=== PATIENT | female | born 1990 | race Caucasian/White ===

== ENCOUNTER 2023-10-22 23:50 | Inpatient (IN) | payer OTHER ==
[2023-10-23] MEDS: ELECTROLYTE-148 SOLN 1,000 ML IV SCH (00:15)
[2023-10-23 01:06] LABS: BASO % 0.6 % (0-2.0); EOS % 0.6 % (0-4.5); HEMATOCRIT 36.5 % (32.4-45.2); HEMOGLOBIN 12.4 GM/dL (10.7-15.3); LYMPH % 19.9 % (8-40); MCH 29.5 pg (25.7-33.7); MCHC 34.1 g/dl (32.0-36.0); MEAN CELL VOLUME 86.5 fl (80-96); MEAN PLT VOLUME 8.8 fl (7.5-11.1); MONO % 6.4 % (3.8-10.2); NEUT % 72.5 % (42.8-82.8); PLATELET COUNT 276 10^3/uL (134-434); RBC 4.22 M/mm3 (3.60-5.2); RDW 13.6 % (11.6-15.6); WHITE BLOOD COUNT 13.2 K/mm3 (4.0-10.0)
[2023-10-23 01:13] LABS: INR 0.89 (0.83-1.09); PROTHROMBIN TIME (PATIENT) 10.3 SEC (9.7-13.0)
[2023-10-23 01:16] LABS: ACTIVATED PTT 25.5 SECONDS (25.2-36.5)
[2023-10-23 01:26] VITALS: BMI 25.0
[2023-10-23 01:36] LABS: POTASSIUM 3.6 mmol/L (3.5-5.1)
[2023-10-23 01:38] LABS: BLOOD UREA NITROGEN 6.1 mg/dL (7-18)
[2023-10-23] MEDS ORDERED: FENTANYL/BUPIVACAINE/NS/PF - PCEA - 50 ML DISP.SYRIN EP ONE ×2 (01:40→04:47)
[2023-10-23] MEDS ORDERED: NALOXONE HCL 0.4 MG/ML VIAL IVPUSH PRN (01:40)
[2023-10-23 01:41] LABS: CREATININE 0.6 mg/dL (0.55-1.3)
[2023-10-23] MEDS ORDERED: FENTANYL CITRATE/PF 50 MCG/ML VIAL ONE (01:48)
[2023-10-23] MEDS ORDERED: BUPIVACAINE HCL/PF 0.25% (2.5MG/ML) 10 ML VIAL ONE (01:48)
[2023-10-23] MEDS: FENTANYL/BUPIVACAINE/NS/PF - PCEA - 50 ML DISP.SYRIN EP SCH (01:50)
[2023-10-23] MEDS ORDERED: OXYTOCIN 30 UNITS in 0.9% NS 30 UNIT/500 ML INFUS.BAG IVPB ONE (03:12)
[2023-10-23] MEDS: OXYTOCIN 30 UNITS in 0.9% NS 30 UNIT/500 ML INFUS.BAG IVPB SCH (03:15)
[2023-10-23 03:21] LABS: HIV INTERPRETATION NEGATIVE (NEGATIVE)
[2023-10-23] MEDS ORDERED: OXYTOCIN 20 UNITS in 0.9% NS 20 UNIT/1,000 ML INFUS.BAG IV ONE (06:46)
[2023-10-23] MEDS ORDERED: oxyCODONE HCL 5 MG TABLET PO PRN (07:14)
[2023-10-23] MEDS ORDERED: BISACODYL 10 MG SUPP.RECT RC PRN (07:14)
[2023-10-23] MEDS ORDERED: METHYLERGONOVINE MALEATE 0.2 MG/1 ML AMP IM PRN (07:14)
[2023-10-23] MEDS ORDERED: BENZOCAINE 28 GM HEMORRHOIDAL OINTMENT TP PRN (07:14)
[2023-10-23] MEDS ORDERED: MISOPROSTOL 200 MCG TABLET ONE (07:59)
[2023-10-23] MEDS: OXYTOCIN 20 UNITS in 0.9% NS 20 UNIT/1,000 ML INFUS.BAG IV SCH (08:02)
[2023-10-23] MEDS ORDERED: MISOPROSTOL 100 MCG TABLET ONE (08:12)
[2023-10-23] MEDS: PROMETHAZINE HCL 25 MG/1 ML VIAL IVPB ONE (08:31)
[2023-10-23] MEDS: BUTORPHANOL TARTRATE 1 MG/ML VIAL IVPB ONE (08:31)
[2023-10-23] MEDS: PRENATAL VITAMINS W/ FOLIC ACID TABLET (FP) PO SCH (10:42)
[2023-10-23] MEDS: ACETAMINOPHEN 325 MG TABLET (FP) PO PRN (11:50)
[2023-10-24 06:07] VITALS: RESP 18
[2023-10-24 06:27] LABS: BASO % 0.6 % (0-2.0); EOS % 0.4 % (0-4.5); HEMATOCRIT 32.9 % (32.4-45.2); LYMPH % 16.5 % (8-40); MCH 29.3 pg (25.7-33.7); MCHC 33.3 g/dl (32.0-36.0); MEAN PLT VOLUME 8.7 fl (7.5-11.1); MONO % 4.6 % (3.8-10.2); NEUT % 77.9 % (42.8-82.8); PLATELET COUNT 218 10^3/uL (134-434); RBC 3.73 M/mm3 (3.60-5.2); RDW 13.3 % (11.6-15.6); WHITE BLOOD COUNT 15.7 K/mm3 (4.0-10.0)
[2023-10-24] MEDS: FERROUS SO4 325 MG TABLET (FP) PO SCH (09:43)
[2023-10-24] MEDS: IBUPROFEN 600 MG TABLET (FP) PO PRN (09:44)
[2023-10-24] MEDS: BENZOCAINE 20% 57 GM BOTTLE TP PRN (18:13)
[2023-10-24] MEDS ORDERED: SENNOSIDES/DOCUSATE COMBO (SENNA PLUS) TABLET (UD) PO PRN (22:00)
[2023-10-25 11:09] VITALS: BP 116/79; PULSE 88; TEMP 98
[2023-10-25] MEDS: WITCH HAZEL 50% (TUCKS) 40 PAD/JAR PAD TP PRN (11:12)
== END 2023-10-25 13:00 | disposition home or self-care (01) | DRG 560 ==
LOC: UNDOADMIN 23:50 → JLDR 23:50 → J3W 10-23 10:40
PROVIDERS: ADMIT Obstetrics & Gynecology; ATTEND Obstetrics & Gynecology
PROC: 10E0XZZ Delivery of Products of Conception, External Approach (ICD-10-PCS; principal; 2023-10-23)
PROC: 0W8NXZZ Division of Female Perineum, External Approach (ICD-10-PCS; 2023-10-23)
PROC: 0HQ9XZZ Repair Perineum Skin, External Approach (ICD-10-PCS; 2023-10-23)
DX: O70.0 First degree perineal laceration during delivery (principal); Z3A.40 40 weeks gestation of pregnancy; Z37.0 Single live birth
CPT/HCPCS: 36415; 80048; 85025; 85610; 85730; 86780; 86850; 86900; 86901; 87389